=== PATIENT | male | born 1935 | race Caucasian/White ===

== ENCOUNTER 2016-12-15 05:54 | Inpatient (IN) | payer MEDICARE, BC ==
[2016-12-15] MEDS ORDERED: SODIUM CHLORIDE 0.9% FLUSH 10 ML SOL IV PRN (06:26)
[2016-12-15] MEDS ORDERED: ASPIRIN 81 MG CHEWABLE CTB ONE (06:41)
[2016-12-15 06:42] LABS: BASOPHILS % (AUTO) 1 % (0-3); EOSINOPHILS % (AUTO) 0 % (0-9); HEMATOCRIT 38 % (39-53); MEAN CORPUSCULAR HGB CONC 35.6 gm/dl (32.0-36.0); MONOCYTES % (AUTO) 7.8 % (0-12); NEUTROPHILS % (AUTO) 81.6 % (37-80)
[2016-12-15 06:45] LABS: MEAN CORPUSCULAR VOLUME 81 fL (80-100)
[2016-12-15 06:46] LABS: CALCIUM 8.7 mg/dl (8.5-10.1); POTASSIUM 3.4 mMol/L (3.5-5.1)
[2016-12-15] MEDS ORDERED: ACETAMINOPHEN 500 MG 500 MG TAB ONE (06:46)
[2016-12-15] MEDS ORDERED: ASPIRIN 81 MG CHEWABLE CTB PO ONE (06:50)
[2016-12-15] MEDS ORDERED: ACETAMINOPHEN 500 MG 500 MG TAB PO ONE (06:50)
[2016-12-15] MEDS ORDERED: ONDANSETRON HCL 4 MG/2 ML SOL IV PRN (07:09)
[2016-12-15] MEDS ORDERED: ACETAMINOPHEN 500 MG 500 MG TAB PO PRN (07:09)
[2016-12-15] MEDS: SODIUM CHLORIDE 0.9% FLUSH 10 ML SOL IV SCH ×2 (07:56→17:51)
[2016-12-15] MEDS ORDERED: AMLODIPINE 5 MG TAB PO SCH (09:00)
[2016-12-15] MEDS ORDERED: ENOXAPARIN 40 MG SOL SC SCH (09:00)
[2016-12-15] MEDS ORDERED: CLOPIDOGREL 75 MG TAB PO SCH (09:00)
[2016-12-15] MEDS ORDERED: [UNRECOGNIZED DRUG - OTHER] PO SCH (09:00)
[2016-12-15] MEDS ORDERED: LISINOPRIL 5 MG TAB PO SCH (09:00)
[2016-12-15] MEDS ORDERED: MULTIVITAMIN2 1 EA TAB PO SCH (09:00)
[2016-12-15 10:43] LABS: APPEARANCE,URINE Clear; BILIRUBIN,URINE NEGATIVE (NEGATIVE); COLOR,URINE Yellow; GLUCOSE, URINE (UA) NEGATIVE (NEGATIVE); KETONES,URINE NEGATIVE (NEGATIVE); LEUKOCYTE ESTERASE ,URINE NEGATIVE (NEGATIVE); NITRATE,URINE NEGATIVE (NEGATIVE); OCCULT BLOOD,URINE 1+ (NEG-TRACE); PH,URINE 6.5; UROBILINOGEN,URINE 0.2 (0.2-1.0 EU)
[2016-12-15 10:54] LABS: RBC,URINE 0-2 (0-3AV/HPF); WBC,URINE 0-2 (0-5AV/HPF)
[2016-12-15 17:51] VITALS: BP 155/82; PULSE 66; RESP 20; TEMP 99.3; O2SAT 95
== END 2016-12-15 20:40 | disposition short-term general hospital (02) | DRG 947 ==
LOC: ED 05:54 → ACUTE CARE 06:58
PROVIDERS: ADMIT Emergency Medicine; ATTEND Family Medicine
DX: R53.1 Weakness (principal); I63.9 Cerebral infarction, unspecified; E11.9 Type 2 diabetes mellitus without complications; I10 Essential (primary) hypertension; R29.700 NIHSS score 0; Z86.73 Personal history of transient ischemic attack (TIA), and cerebral infarction without residual deficits; Z86.79 Personal history of other diseases of the circulatory system; W19.XXXA Unspecified fall, initial encounter
CPT/HCPCS: 70450; 71010; 80048; 81001; 82962; 84484; 85025; 85610; 85730; 93005; 93012; 99234; 99291; J1650; J2405